=== PATIENT | female | born 1975 | race African-American/Black ===

== ENCOUNTER 2016-06-17 01:04 | Emergency (ER) | payer SELFPAY ==
[~2016-06-17] VITALS: Ht 162.6 cm; Wt 60.0 kg
[~2016-06-17 01:04] MED LIST: ADVA250A INH; AZOR5TAB2 PO; ECOT81TA2 PO; GABA300C3 PO; OXYC1SOL5 PO; PROM2SUP; ZOFR8TAB4 PO
[2016-06-17 01:08] VITALS: BP 160/107; PULSE 85; RESP 18; TEMP 97.6; O2SAT 98
[2016-06-17] MEDS ORDERED: ASPI81TA81 PO (01:47)
[2016-06-17] MEDS ORDERED: VENTAER INH (01:47)
[2016-06-17] MEDS ORDERED: ALBUAER3 INH ×2 (01:47→04:13)
[2016-06-17] MEDS ORDERED: GABA300C5 PO (01:47)
[2016-06-17] MEDS ORDERED: NORV2.5T PO (01:47)
[2016-06-17] MEDS ORDERED: ADVA250A INH (01:47)
--- NOTE | 2016-06-17 02:22 | RADRPT ---
EXAM DATE/TIME: 06/17/2016 01:46 [facility] COMPARISON: CHEST SINGLE AP, May 19, 2015, 19:58. INDICATIONS : Shortness of breath and pain when coughing MEDICAL HISTORY : Hypertension. SURGICAL HISTORY : None. ENCOUNTER: Initial ACUITY: 1 day PAIN SCORE: 8/10 LOCATION: Bilateral chest FINDINGS: A single view of the chest demonstrates the lungs to be symmetrically aerated without evidence of mas s, infiltrate or effusion. The cardiomediastinal contours are unremarkable. Osseous structures are intact. CONCLUSION: No acute disease. Georges Newell MD on June 17, 2016 at 2:20 Board Certified Radiologist. This report was verified electronically.
[2016-06-17] MEDS ORDERED: SODIUM CHLOR 0.9% 1000 ML INJ 1,000 ML IV SCH (02:41)
[2016-06-17] MEDS ORDERED: ALUMINUM/MAGNESIUM/SIMETH 30 ML CUP PO ONE (02:45)
[2016-06-17] MEDS ORDERED: methylPREDNISolone SOD SUCC 125 MG/2 ML VIAL IVP ONE (02:45)
[2016-06-17] MEDS ORDERED: PROMETHAZINE INJ 25 MG/ML VIAL IM ONE (02:45)
[2016-06-17] MEDS ORDERED: SODIUM CHLORIDE 0.9% FLUSH 5 ML FLUSH IVF PRN (02:45)
[2016-06-17] MEDS ORDERED: MORPHINE SULFATE 4 MG/ML INJ IV PUSH ONE (02:45)
[2016-06-17] MEDS ORDERED: LIDOCAINE VISCOUS 2% SOLN 15 ML UDC PO ONE (02:45)
[2016-06-17 03:04] VITALS: BP 169/120; PULSE 78; RESP 18; O2SAT 99
[2016-06-17 03:06] VITALS: O2SAT 99
[2016-06-17] MEDS: RESP: ALBUTEROL 2.5 MG/3 ML NEB (SCH) INH ×2 (03:07→03:08)
[2016-06-17 03:24] VITALS: BP 161/105; PULSE 78; RESP 18; O2SAT 100
--- NOTE | 2016-06-17 04:04 | PD ---
HPI Chief Complaint: GI Complaint Time Seen by Provider: 01:35 Travel History International Travel<30 days: No Contact w/Intl Traveler<30days: No Traveled to known affect area: No History of Present Illness HPI Patient's 41 years old. She reports vomiting and headache. She was cleaning. She bleeding. Vomiting was followed by chest pain and headaches. She used a nebulizer at home as well as a pro-air inhaler and Tylenol. These interventions were minimally helpful. She suffers migraines and asthma. Duration a few hours. PFSH Past Medical History Anemia: Yes Asthma: Yes Blood Disorders: Yes (due to endometriosis) Anxiety: Yes Heart Rhythm Problems: Yes (SVT) Cancer: No Cardiovascular Problems: Yes High Cholesterol: No Chest Pain: Yes COPD: No Diminished Hearing: No Endocrine: No Gastrointestinal Disorders: Yes (GASTROPORESIS) Genitourinary: No Headaches: Yes Herniated Disk: Yes Hypertension: Yes Immune Disorder: No Implanted Vascular Access Dvce: Yes (REMOVED 2009) Kidney Stones: Yes Musculoskeletal: No Psychiatric: No Reproductive: Yes (endometriosis, total hysterectomy) Respiratory: Yes (ASTHMA) Immunizations Current: Yes Migraines: Yes Sleep Apnea: No ?: Not : 5 Para: 5 Miscarriage: 0 Ovarian Cysts: Yes (RT. OVARIAN CYSR RESECTION) Past Surgical History Abdominal Surgery: Yes (CHOLECYSTECTOMY, APPENDECTOMY) Appendectomy: Yes Cardiac Surgery: Yes (loop recorder) Cholecystectomy: Yes Gynecologic Surgery: Yes (HYSTERECTOMY) Hysterectomy: Yes Neurologic Surgery: No Other Surgery: Yes Social History Alcohol Use: No Tobacco Use: No Substance Use: No Allergies-Medications (Allergen,Severity, Reaction): Coded Allergies: Compazine (Verified Allergy, Severe, HIVES, 06/17/16) Latex (Verified Allergy, Severe, DECREASED O2 AND SWELLING, 06/17/16) Levaquin (Verified Allergy, Severe, SWELLING, HIVES, 06/17/16) Naproxen (Verified Allergy, Severe, HIVES, 06/17/16) Reglan (Verified Allergy, Severe, HIVES, 06/17/16) Rocephin (Verified Allergy, Severe, HIVES, 06/17/16) Toradol (Verified Allergy, Severe, HIVES, 06/17/16) Ultram (Verified Allergy, Severe, HIVES, 06/17/16) Sulfa (Verified Allergy, Unknown, 06/17/16) Allan Dyson (Verified Allergy, Unknown, 06/17/16) Uncoded Allergies: TUSSIN SYRUP (Allergy, Intermediate, HIVES, 02/09/11) Reported Meds & Prescriptions Reported Meds & Active Scripts Active Reported Aspir-81 (Aspirin) 81 Mg Tabdr 81 Mg PO DAILY Advair Diskus Inh (Fluticasone-Salmeterol Inh) 250-50 Mcg/Blist Aer 1 Puff INH BID Rinse mouth after use. Ventolin Hfa 18 GM Inh (Albuterol Sulfate) 90 Mcg/Act Aer 2 Puff INH Q4-6H PRN Proair Hfa 8.5 GM Inh (Albuterol Sulfate) 90 Mcg/Act Aer 2 Puff INH Q4-6H PRN 108 mcg/actuation Gabapentin 300 Mg Cap 300 Mg PO TID Norvasc (Amlodipine Besylate) 2.5 Mg Tab 2.5 Mg PO DAILY Review of Systems Except as stated in HPI: all other systems reviewed are Neg Physical Exam Narrative GENERAL: 41-year-old female no acute distress SKIN: Warm and dry. HEAD: Atraumatic. Normocephalic. EYES: Pupils equal and round. No scleral icterus. No injection or drainage. ENT: No nasal bleeding or discharge. Mucous membranes pink and moist. NECK: Trachea midline. No JVD. CARDIOVASCULAR: Regular rate and rhythm. No murmur appreciated. RESPIRATORY: No accessory muscle use. Clear to auscultation. Breath sounds equal bilaterally. GASTROINTESTINAL: Abdomen soft, non-tender, nondistended. Hepatic and splenic margins not palpable. MUSCULOSKELETAL: No obvious deformities. No clubbing. No cyanosis. No edema. NEUROLOGICAL: Awake and alert. No obvious cranial nerve deficits. Motor grossly within normal limits. Normal speech. PSYCHIATRIC: Appropriate mood and affect; insight and judgment normal. Data Data Last Documented VS Vital Signs Date Time Temp Pulse Resp B/P Pulse Ox O2 Delivery O2 Flow Rate FiO2 06/17/16 03:24 78 18 161/105 100 06/17/16 03:06 Room Air 06/17/16 03:04 2 06/17/16 01:08 97.6 Orders Chest, Single Ap (06/17/16 01:36) Morphine Inj (Morphine Inj) (06/17/16 02:45) Sodium Chlor 0.9% 1000 Ml Inj (Ns 1000 M (06/17/16 02:41) Al-Mag Hy-Si 40-40-4 Mg/Ml Liq (Mag-Al P (06/17/16 02:45) Lidocaine 2% Viscous (Xylocaine 2% Visco (06/17/16 02:45) Promethazine Inj (Phenergan Inj) (06/17/16 02:45) Iv Access Insert/Monitor (06/17/16 02:41) Ecg Monitoring (06/17/16 02:41) Oximetry (06/17/16 02:41) Oxygen Administration (06/17/16 02:41) Sodium Chloride 0.9% Flush (Ns Flush) (06/17/16 02:45) Methylprednisolone So Succ Inj (Solumedr (06/17/16 02:45) Albuterol Neb (Albuterol Neb) (06/17/16 02:45) MDM Medical Decision Making Medical Screen Exam Complete: Yes Emergency Medical Condition: Yes Medical Record Reviewed: Yes Differential Diagnosis NSTEMI, unstable angina, coronary vasospasm, PE, PTX, aortic dissection, pericarditis, myocarditis, endocarditis, PNA, esophageal disease, aneurysm, musculoskeletal etiologies, anxiety, cocaine/sympathomimetic abuse Narrative Course Chest x-ray: No acute disease Patient reports feeling persistent chest pain for oh 8 AM. After inhaling bleach and coughing for several hours coronary disease is considered quite a bit less likely. We'll provide albuterol nebulizer solution for home and a refill for inhaler at her request. She reports good effect from guaifenesin with codeine in the past. We discussed return precautions and patient verbalized understanding. She also reports improvement after use of lidocaine and Maalox given here as well as Solu-Medrol and breathing treatments. Diagnosis Primary Impression: Cough Referrals: Primary Care Physician 1 day Additional Instructions: You have a choice when it comes to health care, and we are glad that you chose [facility]. Hopefully, we have met your expectations on today's visit. You are welcome to return to [facility] at any time, as we are committed to meeting the health care needs of our community. Med/Other Pt SpecificInfo: Prescription(s) given Scripts Guaifenesin-Codeine Liq 100-10 Mg/5 Ml Soln10 Ml PO Q6H PRN (COUGH) #1 BOTTLE Ref 0 Prov:Ryan Boothe MD 06/17/16 Prednisone 20 Mg Tab40 Mg PO DAILY 4 Days Ref 0 Take 40 mg (2 tablets) daily for 5 days Prov:Ryan Boothe MD 06/17/16 Albuterol Neb 2.5 Mg/0.5 Ml Neb2.5 Mg NEB Q6HR NEB PRN (WHEEZING) #30 BOX Note: The Albuterol Sulfate Inhalation Solution is concentrated and must be diluted. Read complete instructions carefully before using. Prov:Ryan Boothe MD 06/17/16 Albuterol 8.5 GM Inh (Proair Hfa 8.5 GM Inh)90 Mcg/Act Aer2 Puff INH Q4-6H PRN ( SHORTNESS OF BREATH) #1 INHALER Ref 0 108 mcg/actuation Prov:Ryan Boothe MD 06/17/16 Disposition: 01 DISCHARGE HOME Condition: Stable Ryan Boothe MD Jun 17, 2016 04:04
[2016-06-17] MEDS ORDERED: GUAI100S5 PO (04:13)
[2016-06-17] MEDS ORDERED: PRED20 PO (04:13)
[2016-06-17] MEDS ORDERED: ALBU.5I NEB (04:13)
== END 2016-06-17 05:24 | disposition home or self-care (01) ==
LOC: NEPC 01:04
DX: R05 Cough (principal); R07.9 Chest pain, unspecified; T59.894A Toxic effect of other specified gases, fumes and vapors, undetermined, initial encounter; W93.12XA Inhalation of liquid air, initial encounter; Y93.E9 Activity, other interior property and clothing maintenance; Y92.9 Unspecified place or not applicable; Y99.9 Unspecified external cause status
CPT/HCPCS: 71010; 94640; 94664; 96361; 96372; 96374; 96375; 99284; J2270; J2550; J2930; J7030; J7613

== ENCOUNTER 2017-01-04 09:32 | Emergency (ER) | payer OTHER ==
[~2017-01-04] VITALS: Ht 162.6 cm; Wt 60.0 kg
[~2017-01-04 09:32] MED LIST changes: +ALBU.5I NEB; +ALBUAER3 INH; +ASPI81TA81 PO; -AZOR5TAB2 PO; -ECOT81TA2 PO; -GABA300C3 PO; +GABA300C5 PO; +GUAI100S5 PO; +NORV2.5T PO; -OXYC1SOL5 PO; +PRED20 PO; -PROM2SUP; +VENTAER INH; -ZOFR8TAB4 PO
[2017-01-04 09:36] VITALS: BP 179/102; PULSE 92; RESP 22; TEMP 98.7; O2SAT 99
[2017-01-04] MEDS ORDERED: AMLO10TA2 PO (09:49)
[2017-01-04] MEDS ORDERED: ATEN50TA PO (09:49)
[2017-01-04] MEDS ORDERED: SODIUM CHLOR 0.9% 1000 ML INJ 1,000 ML IV ONE (11:30)
[2017-01-04] MEDS ORDERED: SUMAtriptan INJ 6 MG/0.5 ML VIAL SQ ONE (11:30)
[2017-01-04] MEDS ORDERED: DEXAMETHASONE SOD PHOS 4 MG/ML VIAL IV PUSH ONE (11:30)
[2017-01-04] MEDS ORDERED: diphenhydrAMINE HCL 50 MG/ML VIAL IV PUSH ONE (11:30)
--- NOTE | 2017-01-04 11:55 | PD ---
HPI Chief Complaint: Headache Time Seen by Provider: 11:10 Travel History International Travel<30 days: No Contact w/Intl Traveler<30days: No Traveled to known affect area: No History of Present Illness HPI 41 year-old female with a history of migraines presents to the emergency room for evaluation of posterior and left-sided headache for the past 5 days. Gradual onset. States it started off as a normal migraine and progressed with severe worsening of symptoms last night. Patient has had associated nausea and vomiting. She reports associated photophobia. Patient reports history of TIA in January 2016. Her primary care physician Dr. Boykin, has ordered an outpatient MRI scheduled in 3 days for possible pituitary tumor because she has associated bloody nipple discharge from the right breast. Patient had essentially normal MRI one year ago. Patient typically gets 18 migraines per month. She is not on any chronic migraine management. States she typically takes aspirin and Tylenol but that stopped working a couple days ago. Pain is worse with lifting her head. Denies any recent illness. Denies fever, chills. She denies any recent trauma or injury to her head. PFSH Past Medical History Anemia: Yes Asthma: Yes Blood Disorders: Yes (due to endometriosis) Anxiety: Yes Heart Rhythm Problems: Yes (SVT) Cancer: No Cardiovascular Problems: Yes High Cholesterol: No Chest Pain: Yes COPD: No Diminished Hearing: No Endocrine: No Gastrointestinal Disorders: Yes (GASTROPORESIS) Genitourinary: No Headaches: Yes Herniated Disk: Yes Hypertension: Yes Immune Disorder: No Implanted Vascular Access Dvce: Yes (REMOVED 2009) Insomnia: Yes Kidney Stones: Yes Musculoskeletal: No Psychiatric: No Reproductive: Yes (endometriosis, total hysterectomy) Respiratory: Yes (ASTHMA) Immunizations Current: Yes Migraines: Yes Sleep Apnea: No ?: Not : 5 Para: 5 Miscarriage: 0 Ovarian Cysts: Yes (RT. OVARIAN CYSR RESECTION) Past Surgical History Abdominal Surgery: Yes (CHOLECYSTECTOMY, APPENDECTOMY) Appendectomy: Yes Cardiac Surgery: Yes (loop recorder) Cholecystectomy: Yes Gynecologic Surgery: Yes (HYSTERECTOMY) Hysterectomy: Yes Neurologic Surgery: No Other Surgery: Yes Social History Alcohol Use: No Tobacco Use: No Substance Use: No Allergies-Medications (Allergen,Severity, Reaction): Coded Allergies: ceftriaxone (Unverified Allergy, Severe, HIVES, 01/04/17) ketorolac (Unverified Allergy, Severe, HIVES, 01/04/17) latex (Unverified Allergy, Severe, DECREASED O2 AND SWELLING, 01/04/17) levofloxacin (Unverified Allergy, Severe, SWELLING, HIVES, 01/04/17) metoclopramide (Unverified Allergy, Severe, HIVES, 01/04/17) naproxen (Unverified Allergy, Severe, HIVES, 01/04/17) prochlorperazine (Unverified Allergy, Severe, HIVES, 01/04/17) tramadol (Unverified Allergy, Severe, HIVES, 01/04/17) Sulfa (Sulfonamide Antibiotics) (Unverified Allergy, Unknown, 01/04/17) benzonatate (Unverified Allergy, Unknown, 01/04/17) Iodinated Contrast- Oral and IV Dye (Verified Adverse Reaction, Unknown, Hives, 01/04/17) IV CONTRAST ONLY Uncoded Allergies: TUSSIN SYRUP (Allergy, Intermediate, HIVES, 02/09/11) Reported Meds & Prescriptions Reported Meds & Active Scripts Active Augmentin (Amoxicillin-Clavulanate) 875-125 Mg Tab 1 Tab PO BID 10 Days Guaifenesin-Codeine Liq 100-10 Mg/5 Ml Soln 10 Ml PO Q6H PRN Albuterol Neb (Albuterol Sulfate) 2.5 Mg/0.5 Ml Neb 2.5 Mg NEB Q6HR NEB PRN Note: The Albuterol Sulfate Inhalation Solution is concentrated and must be diluted. Read complete instructions carefully before using. Proair Hfa 8.5 GM Inh (Albuterol Sulfate) 90 Mcg/Act Aer 2 Puff INH Q4-6H PRN 108 mcg/actuation Reported Atenolol 50 Mg Tab 50 Mg PO DAILY Amlodipine (Amlodipine Besylate) 10 Mg Tab 10 Mg PO BID Aspir-81 (Aspirin) 81 Mg Tabdr 81 Mg PO DAILY Gabapentin 300 Mg Cap 300 Mg PO TID Review of Systems Except as stated in HPI: all other systems reviewed are Neg Physical Exam Narrative GENERAL: Well-nourished, well-developed female in no acute distress. Afebrile. Ambulatory. Crying in pain. SKIN: Focused skin assessment warm/dry. HEAD: Normocephalic. EYES: No scleral icterus. No injection or drainage. NECK: Supple, trachea midline. No JVD or lymphadenopathy. ENT: Mucosa pink and moist. No erythema or exudates. No uvular edema. No uvular , palatal, or tonsillar deviation. Airway patent. Nasal turbinates appear normal without nasal blood, purulent drainage or septal hematoma. EARS: Bilateral pinnae and external canals appear within normal limits. Bilateral tympanic membranes without erythema, dullness or perforation. No hemotympanum. CARDIOVASCULAR: Regular rate and rhythm without murmurs, gallops, or rubs. RESPIRATORY: Breath sounds equal bilaterally. No accessory muscle use. NEUROLOGICAL: Awake and alert. Cranial nerves II through XII intact. Motor and sensory grossly within normal limits. Five out of 5 muscle strength in all muscle groups. Normal speech. No pronator drift upper or lower extremities. Data Data Last Documented VS Vital Signs Date Time Temp Pulse Resp B/P (MAP) Pulse Ox O2 Delivery O2 Flow Rate FiO2 01/04/17 09:36 98.7 92 22 179/102 (127) 99 Room Air Orders Orders Diphenhydramine Inj (Benadryl Inj) (01/04/17 11:30) Dexamethasone Inj (Decadron Inj) (01/04/17 11:30) Sodium Chlor 0.9% 1000 Ml Inj (Ns 1000 M (01/04/17 11:30) Ct Brain W/O Iv Contrast(Rout) (01/04/17 ) Sumatriptan Inj (Imitrex Inj) (01/04/17 11:30) Morphine Inj (Morphine Inj) (01/04/17 12:15) Orphenadrine Inj (Norflex Inj) (01/04/17 12:30) MDM Medical Decision Making Medical Screen Exam Complete: Yes Emergency Medical Condition: Yes Medical Record Reviewed: Yes Differential Diagnosis Migraine, subarachnoid hemorrhage, intracranial abnormality, cephalgia Narrative Course 41-year-old female with history of chronic migraines (reportedly 18 per month) presents to the emergency room for evaluation of nontraumatic, gradual onset headache worsening of the past 5 days. Denies trauma or injury. She does not follow with a neurologist and is not on any long-term migraine management medication. Pain is localized to the posterior aspect with radiation into the neck and on the left side of her head. She denies any recent illness. No history of fever. She is afebrile well-appearing in the emergency room. Vital signs stable. No focal neurological deficits. Strength 5/5 and equal in bilateral upper and lower extremities. No pronator drift in upper lower extremity. No cranial nerve deficits. Normal speech. Patient is exuberantly crying in pain which I suspect is exacerbating her headache. IV access established and 1 L saline, Benadryl, and prednisone given for pain as well as sumatriptan. Patient reports no relief from medications and was then given [address] shows mild ethmoid sinus disease but no other acute abnormality. Patient will be discharged with prescription for Augmentin and told to follow-up with a primary care physician or return for worsening symptoms. She understands and agrees to plan. Diagnosis Primary Impression: Migraine headache Qualified Codes: G43.719 - Chronic migraine without aura, intractable, without status migrainosus Referrals: Neurologist Primary Care Physician Additional Instructions: Rest and drink plenty of fluids. Augmentin as directed, until gone. Take ibuprofen with food as directed, as needed for pain. Follow-up with a neurologist for chronic management of migraines. Return to the emergency room for worsening symptoms. Med/Other Pt SpecificInfo: Prescription(s) given Scripts Amoxicillin-Clavulanate (Augmentin) 875-125 Mg Tab 1 TAB PO BID for Infection for 10 Days, #20 TAB 0 Refills Prov: David Wade MD 01/04/17 Disposition: 01 DISCHARGE HOME Condition: Stable Cassandra Szymanski Jan 04, 2017 11:55
--- NOTE | 2017-01-04 12:00 | RADRPT ---
EXAM DATE/TIME: 01/04/2017 11:45 [facility] COMPARISON: CT BRAIN W/O CONTRAST, February 08, 2016, 9:51. INDICATIONS : Headache posterior head. RADIATION DOSE: 28.77 CTDIvol (mGy) MEDICAL HISTORY : Migraines.Suspicion of pituitary tumor due to lab work. SURGICAL HISTORY : None. ENCOUNTER: Initial ACUITY: 1 week PAIN SCALE: 10/10 LOCATION: Bilateral posterior brain. TECHNIQUE: Multiple contiguous axial images were obtained of the head. Using automated exposure control and adj ustment of the mA and/or kV according to patient size, radiation dose was kept as low as reasonably a chievable to obtain optimal diagnostic quality images. DICOM format image data is available electro nically for review and comparison. FINDINGS: CEREBRUM: The ventricles are normal for age. No evidence of midline shift, mass lesion, hemorrhage or acute in farction. No extra-axial fluid collections are seen. POSTERIOR FOSSA: The cerebellum and brainstem are intact. The 4th ventricle is midline. The cerebellopontine angle i s unremarkable. EXTRACRANIAL: The visualized portion of the orbits is intact. SKULL: The calvaria is intact. No evidence of skull fracture. Minimal ethmoid sinus disease. Inadequate e valuation of the sella CONCLUSION: Minimal ethmoid sinus disease. Otherwise negative. Travis Gupta MD FACR on January 04, 2017 at 11:57 Board Certified Radiologist. This report was verified electronically.
[2017-01-04] MEDS ORDERED: MORPHINE SULFATE 4 MG/ML INJ IV PUSH ONE (12:15)
--- NOTE | 2017-01-04 12:24 | PD ---
Physical Exam Narrative Patient was seen with my orthopedic assistant. Data Data Last Documented VS Vital Signs Date Time Temp Pulse Resp B/P (MAP) Pulse Ox O2 Delivery O2 Flow Rate FiO2 01/04/17 12:52 01/04/17 09:36 98.7 92 22 99 Room Air Orders Orders Diphenhydramine Inj (Benadryl Inj) (01/04/17 11:30) Dexamethasone Inj (Decadron Inj) (01/04/17 11:30) Sodium Chlor 0.9% 1000 Ml Inj (Ns 1000 M (01/04/17 11:30) Ct Brain W/O Iv Contrast(Rout) (01/04/17 ) Sumatriptan Inj (Imitrex Inj) (01/04/17 11:30) Morphine Inj (Morphine Inj) (01/04/17 12:15) Orphenadrine Inj (Norflex Inj) (01/04/17 12:30) MDM Supervised Visit with SILVERIO: Yes Narrative Course Patient was seen with my orthopedic assistant. Scripts Amoxicillin-Clavulanate (Augmentin) 875-125 Mg Tab 1 TAB PO BID for Infection for 10 Days, #20 TAB 0 Refills Prov: David Wade MD 01/04/17 Disposition: 01 DISCHARGE HOME Condition: Stable David Wade MD Jan 04, 2017 12:24
[2017-01-04] MEDS ORDERED: AUGM875T3 PO (12:26)
[2017-01-04] MEDS ORDERED: ORPHENADRINE INJ 60 MG/2 ML AMP IM ONE (12:30)
== END 2017-01-04 12:53 | disposition home or self-care (01) ==
LOC: NEPD 09:32
DX: G43.719 Chronic migraine without aura, intractable, without status migrainosus (principal); H53.149 Visual discomfort, unspecified; R11.2 Nausea with vomiting, unspecified; J45.909 Unspecified asthma, uncomplicated; I10 Essential (primary) hypertension
CPT/HCPCS: 70450; 96361; 96372; 96374; 96375; 99285; J1100; J1200; J2270; J2360; J3030; J7030

== ENCOUNTER 2017-01-25 13:05 | Emergency (ER) | payer OTHER ==
[~2017-01-25] VITALS: Ht 162.6 cm; Wt 60.0 kg
[~2017-01-25 13:05] MED LIST changes: -ADVA250A INH; +AMLO10TA2 PO; +ATEN50TA PO; +AUGM875T3 PO; -NORV2.5T PO; -PRED20 PO; -VENTAER INH
[2017-01-25 13:10] VITALS: BP 184/114; PULSE 81; RESP 14; TEMP 98.6; O2SAT 97
--- NOTE | 2017-01-25 13:39 | PD ---
HPI Chief Complaint: Headache Time Seen by Provider: 13:38 Travel History International Travel<30 days: No Contact w/Intl Traveler<30days: No Traveled to known affect area: No History of Present Illness HPI 42 YO F with PMH of migraine headaches, distant head trauma, HTN presents to the ED for evaluation of "weeks long" headache, worsening over the last 3 days. Described as left posterior as well as behind the left eye, rated 10/10. Endorses accompanying blurred vision, dizziness, tingling in the bilateral upper extremities. The patient states that she has had similar headaches for years. She states that she receives injections in the neck from a pain support group manager. She treated today with Phenergan and Excedrin at home with no improvement. She states that she was seen in the Ed a few weeks ago with similar symptoms. Since then she saw her PCP, Neurologist and Healthcare Economics Manager with no improvement of her symptoms. She states that she had an outpatient MRI of the brain last month. She has an appointment this week to discuss the results. PFSH Past Medical History Anemia: Yes Asthma: Yes Blood Disorders: Yes (due to endometriosis) Anxiety: Yes Heart Rhythm Problems: Yes (SVT) Cancer: No Cardiovascular Problems: Yes High Cholesterol: No Chest Pain: Yes COPD: No Diminished Hearing: No Endocrine: No Gastrointestinal Disorders: Yes (GASTROPORESIS) Genitourinary: No Headaches: Yes Herniated Disk: Yes Hypertension: Yes Immune Disorder: No Implanted Vascular Access Dvce: Yes (REMOVED 2009) Insomnia: Yes Kidney Stones: Yes Musculoskeletal: No Psychiatric: No Reproductive: Yes (endometriosis, total hysterectomy) Respiratory: Yes (ASTHMA) Immunizations Current: Yes Migraines: Yes Sleep Apnea: No ?: Not LMP: FEB 2003 : 5 Para: 5 Miscarriage: 0 Ovarian Cysts: Yes (RT. OVARIAN CYSR RESECTION) Past Surgical History Abdominal Surgery: Yes (CHOLECYSTECTOMY, APPENDECTOMY) Appendectomy: Yes Cardiac Surgery: Yes (loop recorder) Cholecystectomy: Yes Gynecologic Surgery: Yes (HYSTERECTOMY) Hysterectomy: Yes Neurologic Surgery: No Other Surgery: Yes Social History Alcohol Use: No Tobacco Use: No Substance Use: No Allergies-Medications (Allergen,Severity, Reaction): Coded Allergies: ceftriaxone (Unverified Allergy, Severe, HIVES, 01/04/17) ketorolac (Unverified Allergy, Severe, HIVES, 01/04/17) latex (Unverified Allergy, Severe, DECREASED O2 AND SWELLING, 01/04/17) levofloxacin (Unverified Allergy, Severe, SWELLING, HIVES, 01/04/17) metoclopramide (Unverified Allergy, Severe, HIVES, 01/04/17) naproxen (Unverified Allergy, Severe, HIVES, 01/04/17) prochlorperazine (Unverified Allergy, Severe, HIVES, 01/04/17) tramadol (Unverified Allergy, Severe, HIVES, 01/04/17) Sulfa (Sulfonamide Antibiotics) (Unverified Allergy, Unknown, 01/04/17) benzonatate (Unverified Allergy, Unknown, 01/04/17) Iodinated Contrast- Oral and IV Dye (Verified Adverse Reaction, Unknown, Hives, 01/04/17) IV CONTRAST ONLY Uncoded Allergies: TUSSIN SYRUP (Allergy, Intermediate, HIVES, 02/09/11) Reported Meds & Prescriptions Reported Meds & Active Scripts Active Fioricet (Ezwnfdedcn-Dwrimnhxszelq-Bdjvwqoo) 50-300-40 Mg Cap 1 Cap PO Q4H PRN Augmentin (Amoxicillin-Clavulanate) 875-125 Mg Tab 1 Tab PO BID 10 Days Guaifenesin-Codeine Liq 100-10 Mg/5 Ml Soln 10 Ml PO Q6H PRN Albuterol Neb (Albuterol Sulfate) 2.5 Mg/0.5 Ml Neb 2.5 Mg NEB Q6HR NEB PRN Note: The Albuterol Sulfate Inhalation Solution is concentrated and must be diluted. Read complete instructions carefully before using. Proair Hfa 8.5 GM Inh (Albuterol Sulfate) 90 Mcg/Act Aer 2 Puff INH Q4-6H PRN 108 mcg/actuation Reported Atenolol 50 Mg Tab 50 Mg PO DAILY Amlodipine (Amlodipine Besylate) 10 Mg Tab 10 Mg PO BID Aspir-81 (Aspirin) 81 Mg Tabdr 81 Mg PO DAILY Gabapentin 300 Mg Cap 300 Mg PO TID Review of Systems Except as stated in HPI: all other systems reviewed are Neg Physical Exam Narrative GENERAL: Well-nourished, well-developed anxious black female in NAD. SKIN: Warm and dry. HEAD: Normocephalic. Atraumatic. EYES: No scleral icterus. No injection or drainage. PERRLA. EOMI. ENT: Pearly gasca tympanic membranes bilaterally. Oropharynx without erythema, edema or exudate. NECK: Supple, trachea midline. No JVD or lymphadenopathy. No midline TTP. No pain with or limitation to ROM. Negative Brudzinski and Kernig's. CARDIOVASCULAR: Regular rate and rhythm without murmurs, gallops, or rubs. 2+ DP and radial pulses bilaterally. RESPIRATORY: Breath sounds clear and equal bilaterally. No accessory muscle use. GASTROINTESTINAL: Abdomen soft, non-tender, nondistended. + Bowel sounds MUSCULOSKELETAL: No cyanosis, or edema. NEUROLOGICAL: Awake and alert. Cranial nerves II through XII intact. Motor and sensory grossly within normal limits. Five out of 5 muscle strength in all muscle groups. Normal speech. BACK: Nontender without obvious deformity. No CVA tenderness. Data Data Last Documented VS Vital Signs Date Time Temp Pulse Resp B/P (MAP) Pulse Ox O2 Delivery O2 Flow Rate FiO2 01/25/17 17:06 72 18 157/95 (115) 98 01/25/17 15:45 Room Air 01/25/17 13:10 98.6 Orders Orders Ecg Monitoring (01/25/17 14:14) Iv Access Insert/Monitor (01/25/17 14:14) Oximetry (01/25/17 14:14) Sodium Chloride 0.9% Flush (Ns Flush) (01/25/17 14:15) Diphenhydramine Inj (Benadryl Inj) (01/25/17 14:15) Sodium Chlor 0.9% 1000 Ml Inj (Ns 1000 M (01/25/17 14:14) Promethazine Inj (Phenergan Inj) (01/25/17 14:15) Morphine Inj (Morphine Inj) (01/25/17 14:15) Lorazepam (Ativan) (01/25/17 16:45) MDM Medical Decision Making Medical Screen Exam Complete: Yes Emergency Medical Condition: Yes Differential Diagnosis migraine versus cephalgia versus paraesthesias versus anxiety versus other Narrative Course 42 YO F with PMH of migraine headaches, distant head trauma, HTN presents to the ED for evaluation of "weeks long" headache, worsening over the last 3 days. Described as left posterior as well as behind the left eye, rated 10/10. Endorses accompanying blurred vision, dizziness, tingling in the bilateral upper extremities. The patient states that she has had similar headaches for years. She states that she receives injections in the neck from a pain support group manager. She's been seen in the ED, PCP, Neurologist and Healthcare Economics Manager with no improvement of her symptoms. She states that she had an outpatient MRI of the brain last month. She has an appointment this week to discuss the results. Vitals reviewed. The patient is hypertensive on presentation. Physical exam reveals no focal neuro deficit. Negative Brudzinski and Kernig's. IV was established. Patient was administered Benadryl, Phenergan, 2 mg morphine and 1 L of fluids IV. I reviewed the patient's outpatient MRI of 01/07/17. It reveals a 2 mm nonenhancing nodule in the left pituitary. The patient had a negative CT at her last visit 01/04. On recheck the patient is sleeping. She rouses easily to voice. She reports no improvement of her headache. The patient does seem anxious and was administered 0.5 mg Ativan by mouth. I believe this is likely a factor in her symptoms. She is currently undergoing workup for breast cancer and I suspect this is adding to her already existing anxiety. I discussed the need for follow-up with her neurologist and primary care for further evaluation. She was provided with a few doses of Fioricet. The patient indicated understanding of the discharge instructions. She is stable and discharged home Diagnosis Primary Impression: Cephalgia Qualified Codes: R51 - Headache Referrals: Neurologist Primary Care Physician Patient Instructions: General Instructions, Migraine Headache (ED) Additional Instructions: Rest, hydrate. Resume at home medications as previously prescribed. Follow up with your PCP and neurologist as planned. Return to the ED for any urgent or emergent medical condition. Scripts Bddrsrqnwd-Sxakirieahbus-Zkdqunbm (Fioricet) 50-300-40 Mg Cap 1 CAP PO Q4H Y for HEADACHE, #15 CAP 0 Refills Prov: Sara Rosas MD 01/25/17 Disposition: 01 DISCHARGE HOME Condition: Stable Nicolasa Kiran Jan 25, 2017 13:39
[2017-01-25] MEDS ORDERED: SODIUM CHLOR 0.9% 1000 ML INJ 1,000 ML IV ONE (14:14)
[2017-01-25] MEDS ORDERED: SODIUM CHLORIDE 0.9% FLUSH 10 ML FLUSH IVF PRN (14:15)
[2017-01-25] MEDS ORDERED: diphenhydrAMINE HCL 50 MG/ML VIAL IVP ONE (14:15)
[2017-01-25] MEDS ORDERED: PROMETHAZINE INJ 25 MG/ML VIAL IM ONE (14:15)
[2017-01-25] MEDS ORDERED: MORPHINE SULFATE 2 MG/ML INJ IV PUSH ONE (14:15)
[2017-01-25 15:44] VITALS: O2SAT 98
[2017-01-25 15:45] VITALS: BP 153/99; PULSE 58; RESP 18; O2SAT 98
[2017-01-25] MEDS ORDERED: LORazepam 0.5 MG TAB PO ONE (16:45)
[2017-01-25] MEDS ORDERED: BUTA1CAP PO (16:46)
[2017-01-25 17:06] VITALS: BP 157/95
== END 2017-01-25 17:24 | disposition home or self-care (01) ==
LOC: NEPD 13:05
DX: R51 Headache (principal); R42 Dizziness and giddiness; R20.2 Paresthesia of skin; H53.8 Other visual disturbances; I10 Essential (primary) hypertension; D64.9 Anemia, unspecified; J45.909 Unspecified asthma, uncomplicated; F41.9 Anxiety disorder, unspecified; K31.84 Gastroparesis
CPT/HCPCS: 96361; 96372; 96374; 96375; 99284; J1200; J2270; J2550; J7030

== ENCOUNTER 2017-02-02 08:28 | Emergency (ER) | payer OTHER ==
[~2017-02-02] VITALS: Ht 162.6 cm; Wt 62.0 kg
[~2017-02-02 08:28] MED LIST changes: +BUTA1CAP PO
[2017-02-02 08:38] VITALS: BP 176/110; PULSE 83; RESP 13; TEMP 98; O2SAT 97
[2017-02-02] MEDS ORDERED: ONDANSETRON HCL 4 MG/2 ML VIAL IM ONE (09:00)
[2017-02-02] MEDS ORDERED: MORPHINE SULFATE 4 MG/ML INJ IM ONE (09:00)
--- NOTE | 2017-02-02 09:08 | PD ---
HPI Chief Complaint: Headache Time Seen by Provider: 08:45 Travel History International Travel<30 days: No Contact w/Intl Traveler<30days: No Traveled to known affect area: No History of Present Illness HPI The patient was seen and examined in the presence of the nurse. This patient has chronic headache problems. She follows with neurology. She had an MRI less than a month ago. She says this current headache is better than 35 days. Location is right occipital region. No injury or head trauma. Denies fever. Symptoms severity is moderate PFSH Past Medical History Anemia: Yes Asthma: Yes Blood Disorders: Yes (due to endometriosis) Anxiety: Yes Heart Rhythm Problems: Yes (SVT) Cancer: Yes (POSSIBLE BREAST CA) Cardiovascular Problems: Yes High Cholesterol: No Chest Pain: Yes COPD: No Diminished Hearing: No Endocrine: No Gastrointestinal Disorders: Yes (GASTROPORESIS) Genitourinary: No Headaches: Yes Herniated Disk: Yes Hypertension: Yes Immune Disorder: No Implanted Vascular Access Dvce: Yes (REMOVED 2009) Insomnia: Yes Kidney Stones: Yes Musculoskeletal: No Psychiatric: No Reproductive: Yes (endometriosis, total hysterectomy) Respiratory: Yes (ASTHMA) Immunizations Current: Yes Migraines: Yes Sleep Apnea: No ?: Not : 5 Para: 5 Miscarriage: 0 Ovarian Cysts: Yes (RT. OVARIAN CYSR RESECTION) Past Surgical History Abdominal Surgery: Yes (CHOLECYSTECTOMY, APPENDECTOMY) Appendectomy: Yes Cardiac Surgery: Yes (loop recorder) Cholecystectomy: Yes Gynecologic Surgery: Yes (HYSTERECTOMY) Hysterectomy: Yes Neurologic Surgery: No Other Surgery: Yes (RIGHT BREAST BIOPSY) Social History Alcohol Use: No Tobacco Use: No Substance Use: No Allergies-Medications (Allergen,Severity, Reaction): Coded Allergies: ceftriaxone (Unverified Allergy, Severe, HIVES, 01/04/17) ketorolac (Unverified Allergy, Severe, HIVES, 01/04/17) latex (Unverified Allergy, Severe, DECREASED O2 AND SWELLING, 01/04/17) levofloxacin (Unverified Allergy, Severe, SWELLING, HIVES, 01/04/17) metoclopramide (Unverified Allergy, Severe, HIVES, 01/04/17) naproxen (Unverified Allergy, Severe, HIVES, 01/04/17) prochlorperazine (Unverified Allergy, Severe, HIVES, 01/04/17) tramadol (Unverified Allergy, Severe, HIVES, 01/04/17) Sulfa (Sulfonamide Antibiotics) (Unverified Allergy, Unknown, 01/04/17) benzonatate (Unverified Allergy, Unknown, 01/04/17) Iodinated Contrast- Oral and IV Dye (Verified Adverse Reaction, Unknown, Hives, 01/04/17) IV CONTRAST ONLY Uncoded Allergies: TUSSIN SYRUP (Allergy, Intermediate, HIVES, 02/09/11) Reported Meds & Prescriptions Reported Meds & Active Scripts Active Fioricet (Jrsfnxowjx-Kgbdwqnnybabc-Gqathynr) 50-300-40 Mg Cap 1 Cap PO Q4H PRN Augmentin (Amoxicillin-Clavulanate) 875-125 Mg Tab 1 Tab PO BID 10 Days Guaifenesin-Codeine Liq 100-10 Mg/5 Ml Soln 10 Ml PO Q6H PRN Albuterol Neb (Albuterol Sulfate) 2.5 Mg/0.5 Ml Neb 2.5 Mg NEB Q6HR NEB PRN Note: The Albuterol Sulfate Inhalation Solution is concentrated and must be diluted. Read complete instructions carefully before using. Proair Hfa 8.5 GM Inh (Albuterol Sulfate) 90 Mcg/Act Aer 2 Puff INH Q4-6H PRN 108 mcg/actuation Reported Atenolol 50 Mg Tab 50 Mg PO DAILY Amlodipine (Amlodipine Besylate) 10 Mg Tab 10 Mg PO BID Aspir-81 (Aspirin) 81 Mg Tabdr 81 Mg PO DAILY Gabapentin 300 Mg Cap 300 Mg PO TID Review of Systems HENT: Positive: Headaches Cardiovascular: No: Chest Pain or Discomfort Respiratory: No: Shortness of Breath Gastrointestinal: No: Vomiting Neurologic: Positive: Headache Physical Exam Narrative GENERAL: Well-nourished, well-developed patient complaining of headache. SKIN: Focused skin assessment reveals no rash and nodules. Skin is Warm and dry. HEAD: Atraumatic. Normocephalic. Right occipital region is tender but no scalp findings on exam EYES: Pupils equal and round. No scleral icterus. No injection or drainage. ENT: No nasal bleeding or discharge. Mucous membranes pink and moist. NECK: Trachea midline. No JVD. No meningeal signs CARDIOVASCULAR: Regular rate and rhythm. No murmur appreciated. RESPIRATORY: No accessory muscle use. Clear to auscultation. Breath sounds equal bilaterally. GASTROINTESTINAL: Abdomen soft, non-tender, nondistended. Hepatic and splenic margins not palpable. MUSCULOSKELETAL: No obvious deformities. No clubbing. No cyanosis. No edema. NEUROLOGICAL: Awake and alert. No obvious cranial nerve deficits. Motor grossly within normal limits. Normal speech. PSYCHIATRIC: Appropriate mood and affect; insight and judgment normal. Data Data Last Documented VS Vital Signs Date Time Temp Pulse Resp B/P (MAP) Pulse Ox O2 Delivery O2 Flow Rate FiO2 02/02/17 08:38 98.0 83 13 176/110 (132) 97 Orders Orders Ondansetron Inj (Zofran Inj) (02/02/17 09:00) Morphine Inj (Morphine Inj) (02/02/17 09:00) MDM Medical Decision Making Medical Screen Exam Complete: Yes Emergency Medical Condition: Yes Medical Record Reviewed: Yes Differential Diagnosis Differential diagnosis includes migraine, tension headache, cluster headache, meningitis. Narrative Course I have reviewed the patient's electronic medical record. She is a frequent visitor for headache problems. She was seen here 8 days ago for the same Patient is neurologically intact. No indication for repeat brain imaging. She had both brain CT and MRI last month. I gave her an intramuscular injection of morphine and Zofran Stable for outpatient follow-up with her neurologist. Diagnosis Primary Impression: Recurrent occipital headache Additional Instructions: Follow-up with your neurologist Med/Other Pt SpecificInfo: Other Disposition: 01 DISCHARGE HOME Condition: Stable Pernell Patel MD Feb 02, 2017 09:08
[2017-02-02 10:30] VITALS: BP 178/112; PULSE 98; RESP 20; O2SAT 99
[2017-02-02 11:44] VITALS: BP 172/109; PULSE 100; RESP 20; O2SAT 99
[2017-02-02] MEDS ORDERED: CLIN1CAP6 PO (12:30)
[2017-02-02] MEDS ORDERED: SODIUM CHLORIDE 0.9% FLUSH 10 ML FLUSH IVF PRN (12:45)
[2017-02-02] MEDS ORDERED: ACETAMINOPHEN 500 MG CPLT PO ONE (12:45)
--- NOTE | 2017-02-02 13:21 | RADRPT ---
EXAM DATE/TIME: 02/02/2017 12:57 [facility] COMPARISON: CHEST SINGLE AP, June 17, 2016, 1:46. INDICATIONS : Chest pain for one week. MEDICAL HISTORY : Hypertension. Gastroparesis SURGICAL HISTORY : Hysterectomy. Cholecystectomy. Appendectomy, Loop recorder, Rt breast biopsy. ENCOUNTER: Initial ACUITY: 1 week PAIN SCORE: 6/10 LOCATION: Right chest FINDINGS: A single view of the chest demonstrates the lungs to be symmetrically aerated without evidence of mas s, infiltrate or effusion. The cardiomediastinal contours are unremarkable. Osseous structures are intact. The aortic knob is prominent with tortuosity of the descending thoracic aorta. CONCLUSION: 1. No acute cardiopulmonary disease. Juno Weir MD on February 02, 2017 at 13:20 Board Certified Radiologist. This report was verified electronically.
[2017-02-02 13:31] LABS: AUTOMATED NEUTROPHIL # 10.4 TH/MM3 (1.8-7.7); BASOPHIL % 0.3 % (0.0-2.0); EOSINOPHIL % 0.1 % (0.0-4.0); HEMATOCRIT 45.9 % (35.0-46.0); HEMO FLAGS DIFF FINAL; LYMPH % 21.5 % (9.0-44.0); LYMPHOCYTE # 3.1 TH/MM3 (1.0-4.8); MEAN CORPUSCULAR HEMOGLOBIN 27.2 PG (27.0-34.0); MEAN CORPUSCULAR HGB CONC 32.8 % (32.0-36.0); MONO % 6.9 % (0.0-8.0); NEUT % 71.2 % (16.0-70.0); PLATELET COUNT 315 TH/MM3 (150-450); RED BLOOD COUNT 5.52 MIL/MM3 (4.00-5.30); RED CELL DISTRIBUTION WIDTH 14.5 % (11.6-17.2); WHITE BLOOD COUNT 14.6 TH/MM3 (4.0-11.0)
[2017-02-02 13:41] LABS: APTT (PATIENT) 24.2 SEC (24.3-30.1); INTERNATIONAL NORMALIZED RATIO 0.9 RATIO
[2017-02-02 13:48] VITALS: O2SAT 99
[2017-02-02 13:58] VITALS: BP 172/101; PULSE 90; RESP 20; O2SAT 99
[2017-02-02 14:03] LABS: ANION GAP 9 MEQ/L (5-15); BICARBONATE 28.2 MEQ/L (21.0-32.0); BLOOD UREA NITROGEN 15 MG/DL (7-18); CHLORIDE 102 MEQ/L (98-107); CREATINE KINASE 122 U/L (26-192); GLOMERULAR FILTRATION RATE 95 ML/MIN (>89); POTASSIUM 3.2 MEQ/L (3.5-5.1); SODIUM (NA) 139 MEQ/L (136-145)
[2017-02-02 14:15] LABS: CKMB 0.6 NG/ML (0.5-3.6)
[2017-02-02] MEDS ORDERED: diphenhydrAMINE HCL 25 MG CAP PO ONE (14:30)
--- NOTE | 2017-02-02 16:20 | EKG ---
Date Performed: 02/02/2017 Time Performed: 13:40:42 PTAGE: 42 years EKG: Sinus rhythm MINIMAL VOLTAGE CRITERIA FOR LVH, CONSIDER NORMAL VARIANT BORDERLINE ECG No significant change from prior electrocardiogram. PREVIOUS TRACING : 02/12/2016 05.42 DOCTOR: Byron Lafleur Interpretating Date/Time 02/02/2017 16:19:23
== END 2017-02-02 14:53 | disposition home or self-care (01) ==
LOC: NEPE 08:28
DX: R51 Headache (principal); D64.9 Anemia, unspecified; F41.9 Anxiety disorder, unspecified; I10 Essential (primary) hypertension; J45.909 Unspecified asthma, uncomplicated; R07.89 Other chest pain
CPT/HCPCS: 71010; 80048; 82550; 82552; 84484; 85025; 85610; 85730; 93005; 96372; 99285; J2270; J2405

== ENCOUNTER → 2017-03-20 | Day surgery (SDC) | payer OTHER, MEDICAID ==
--- NOTE | 2017-03-12 13:40 | TH ---
cc: SIOMARA SIMPSON DATE: 03/20/2017 [facility] [id number] ATTENDING PHYSICIAN Siomara Simpson HISTORY OF PRESENT ILLNESS The patient is a 42-year-old -[place] female with a longstanding history of bilateral nipple discharge which has been bloody on the right side and associated with right nipple inversion and breast pain. Her work-up has included a bilateral diagnostic mammogram on December 05, 2016 and a right breast ultrasound. This demonstrated moderate breast density but no subareolar masses. Breast MRI on January 15, 2017 demonstrated abnormal subareolar right breast enhancement and MR-guided biopsy was performed on January 22, 2017 which demonstrated acute and chronic mastitis. The patient comes in to see me for a second opinion. She stated that her nipple discharge has been present for approximately 10 years and is associated with intermittent right nipple inversion and pain. The discharge has been purulent and bloody in the past and is spontaneous and intermittent. Although the discharge involves both sides, she is only symptomatic on the right side. She also stated that the discharge sometimes comes from the areola rather than the nipple itself. She is a nonsmoker. PAST MEDICAL HISTORY 1. Hypertension. 2. Questionable pituitary adenoma. 3. Seasonal reactive airway disease. 4. Gastroesophageal reflux. PAST SURGICAL HISTORY 1. Appendectomy. 2. Cholecystectomy. 3. Total abdominal hysterectomy. 4. Bilateral oophorectomy. REPRODUCTIVE HISTORY G5, P5. Menarche age 10. First child age 16. Surgical menopause age 30. Her ovaries were removed at the age of 35 and she does not take hormone replacement therapy. ALLERGIES She has multiple drug allergies includin. LATEX. 2. COMPAZINE. 3. LEVAQUIN. 4. NAPROSYN. 5. REGLAN. 6. ROCEPHIN. 7. TORADOL. 8. ULTRAM. 9. TESSALON PERLES. MEDICATIONS Current medications include: 1. Advair, one puff every 12 hours. 2. Amlodipine 10 mg b.i.d. 3. Aspirin 81 mg daily. 4. Calcium and vitamin-D three times daily. 5. Excedrin for migraines, two tablets b.i.d. p.r.n. 6. Gabapentin 300 mg tablets, two q.a.m. and q.p.m., and one tablet at noon. 7. Hydrocodone/acetaminophen 5/325, 1-2 tablets q.4-6h. P.r.n. 8. Zofran 8 mg q.6h. P.r.n. 9. Prednisone 5 mg Dosepak. 10.Ranitidine 150 mg b.i.d. 11.Valsartan 80/12.5 mg, one daily. REVIEW OF SYSTEMS A 12-point review of systems was otherwise noncontributory. PHYSICAL EXAMINATION VITAL SIGNS: She is 5 feet 4 and weighs a 137 pounds with a BMI of 23.5. Blood pressure is 154/104, temperature 97, heart rate 99, respirations 16. HEENT: Unremarkable. NECK: Supple with no adenopathy or thyromegaly. CHEST: Clear throughout. CARDIAC: Normal S1 and S2, with no murmurs, rubs or gallops. BREASTS: Fibrocystic changes, and there was tenderness but no discrete mass in the right breast. ABDOMEN: Significant for a Pfannenstiel scar and port scars, but no masses or tenderness. The remainder of her exam was unremarkable. 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 I have recommended excision of the symptomatic nipple ducts and she has agreed to proceed. MD HEMANTH Quiñones/TORRES /1:17 PM /1:28 PM
[~2017-03-20] MED LIST changes: +BUPIVACAINE HCL PF 0.5% 30 ML VIAL ONE; +CLIN300C5 PO; +MEPERIDINE HCL 25 MG/ML VIAL ONE; +MIDAZOLAM HCL 2 MG/2 ML VIAL ONE; +ONDANSETRON HCL 4 MG/2 ML VIAL IV PUSH ONE; +PROPOFOL 200 MG/20 ML AMP IV ONE; +diphenhydrAMINE HCL 50 MG/ML VIAL ONE
--- NOTE | 2017-03-20 12:40 | TN ---
cc: SIOMARA SIMPSON M.D. DATE OF SURGERY 03/20/2017 PREOPERATIVE DIAGNOSIS Granulomatous mastitis of the right breast. POSTOPERATIVE DIAGNOSIS Granulomatous mastitis of the right breast. PROCEDURE PERFORMED Excision of subareolar right nipple ducts. SURGEON Siomara Simpson MD ANESTHESIA General via LMA device. INDICATION The patient is a 42-year-old -[place] female with granulomatous mastitis and nipple discharge, as well as discharge in the areola. She has failed multiple courses of antibiotics and is a nonsmoker. She now presents for excision of the involved subareolar blocked ducts. FINDINGS AT THE TIME OF SURGERY Moderate induration in the upper inner nipple was identified extending into the subareolar tissue. PROCEDURE PERFORMED After informed consent was obtained and site verification was performed, the periareolar upper inner skin was anesthetized with 0.5% Marcaine plain. Sharp dissection was then performed circumferentially around the subareolar tissue at 1 o'clock 1 cm from the nipple extending up to the nipple skin. The specimen was oriented with two sutures anteriorly, one short suture superiorly, and one long suture laterally and it was then sent for permanent pathologic evaluation. Hemostasis was easily obtained with direct pressure and the wound was closed using interrupted 3-0 Vicryl subcutaneous sutures and a 4-0 Monocryl subcuticular suture. Steri-Strips and sterile dressing were applied. The patient tolerated the procedure well and was brought to recovery room following extubation in good condition. MD HEMANTH Quiñones/RADHA /12:20 PM /12:33 PM
== END | disposition home or self-care (01) ==
LOC: ESDC 09:39
PROVIDERS: ATTEND Surgery
DX: N64.52 Nipple discharge (principal); N61.0 Mastitis without abscess
CPT/HCPCS: 00400; 19110; 88305; J1200; J2175; J2250; J2405; J3010

== ENCOUNTER 2017-08-19 18:57 | Emergency (ER) | payer MEDICAID, OTHER ==
[~2017-08-19] VITALS: Ht 162.6 cm; Wt 64.1 kg
[~2017-08-19 18:57] MED LIST changes: -BUPIVACAINE HCL PF 0.5% 30 ML VIAL ONE; -MEPERIDINE HCL 25 MG/ML VIAL ONE; -MIDAZOLAM HCL 2 MG/2 ML VIAL ONE; -ONDANSETRON HCL 4 MG/2 ML VIAL IV PUSH ONE; -PROPOFOL 200 MG/20 ML AMP IV ONE; -diphenhydrAMINE HCL 50 MG/ML VIAL ONE
[2017-08-19 19:02] VITALS: BP 136/65; PULSE 86; RESP 18; TEMP 98; O2SAT 98
[2017-08-19] MEDS ORDERED: diphenhydrAMINE HCL 50 MG/ML VIAL IV PUSH ONE (19:45)
[2017-08-19] MEDS ORDERED: SODIUM CHLOR 0.9% 1000 ML INJ 1,000 ML IV ONE (19:45)
[2017-08-19] MEDS ORDERED: ONDANSETRON HCL 4 MG/2 ML VIAL IV PUSH ONE (19:45)
--- NOTE | 2017-08-19 19:48 | PD ---
HPI Chief Complaint: GI Complaint Time Seen by Provider: 19:37 Travel History International Travel<30 days: No Contact w/Intl Traveler<30days: No Traveled to known affect area: No History of Present Illness HPI 42-year-old black female with a history of hypertension, gastroparesis, chronic pruritus, chronic neck pain and back pain, and migraines complains of nausea, vomiting and diarrhea for the past 3 days. She also has had diffuse abdominal cramping. More in the lower abdomen. She denies any fevers but states that she feels chilled. She does have a decrease in appetite. She denies any dysuria or frequency. No melena or hematochezia. 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 She denies any bad food. No recent contacts. No traveling or Camping. PFSH Past Medical History Anemia: Yes Asthma: Yes Blood Disorders: Yes (due to endometriosis) Anxiety: Yes Heart Rhythm Problems: Yes (SVT) Cancer: Yes (POSSIBLE BREAST CA) Cardiovascular Problems: Yes High Cholesterol: No Chest Pain: Yes COPD: No Diminished Hearing: No Endocrine: No Gastrointestinal Disorders: Yes (GASTROPORESIS) Genitourinary: No Headaches: Yes Herniated Disk: Yes Hypertension: Yes Immune Disorder: No Implanted Vascular Access Dvce: Yes (REMOVED 2009) Insomnia: Yes Kidney Stones: Yes Musculoskeletal: No Psychiatric: No Reproductive: Yes (endometriosis, total hysterectomy) Respiratory: Yes (ASTHMA) Immunizations Current: Yes Migraines: Yes Sleep Apnea: No ?: Not : 5 Para: 5 Miscarriage: 0 Ovarian Cysts: Yes (RT. OVARIAN CYSR RESECTION) Past Surgical History Abdominal Surgery: Yes (CHOLECYSTECTOMY, APPENDECTOMY) Appendectomy: Yes Cardiac Surgery: Yes (loop recorder) Cholecystectomy: Yes Gynecologic Surgery: Yes (HYSTERECTOMY) Hysterectomy: Yes Neurologic Surgery: No Other Surgery: Yes (RIGHT BREAST BIOPSY) Social History Alcohol Use: No Tobacco Use: No Substance Use: No Allergies-Medications (Allergen,Severity, Reaction): Coded Allergies: ceftriaxone (Verified Allergy, Severe, HIVES, 08/19/17) ketorolac (Verified Allergy, Severe, HIVES, 08/19/17) latex (Verified Allergy, Severe, DECREASED O2 AND SWELLING, 08/19/17) levofloxacin (Verified Allergy, Severe, SWELLING, HIVES, 08/19/17) metoclopramide (Verified Allergy, Severe, HIVES, 08/19/17) naproxen (Verified Allergy, Severe, HIVES, 08/19/17) prochlorperazine (Verified Allergy, Severe, HIVES, 08/19/17) tramadol (Verified Allergy, Severe, HIVES, 08/19/17) Sulfa (Sulfonamide Antibiotics) (Verified Allergy, Unknown, 08/19/17) benzonatate (Verified Allergy, Unknown, 08/19/17) Iodinated Contrast- Oral and IV Dye (Verified Adverse Reaction, Unknown, Hives, 08/19/17) IV CONTRAST ONLY Uncoded Allergies: TUSSIN SYRUP (Allergy, Intermediate, HIVES, 02/09/11) Reported Meds & Prescriptions Reported Meds & Active Scripts Active Phenergan (Promethazine HCl) 25 Mg Tablet 25 Mg PO Q6H PRN Fioricet (Gkgualwcom-Lxjthwaalcclp-Lqbwicgm) 50-300-40 Mg Cap 1 Cap PO Q4H PRN Augmentin (Amoxicillin-Clavulanate) 875-125 Mg Tab 1 Tab PO BID 10 Days Guaifenesin-Codeine Liq 100-10 Mg/5 Ml Soln 10 Ml PO Q6H PRN Albuterol Neb (Albuterol Sulfate) 2.5 Mg/0.5 Ml Neb 2.5 Mg NEB Q6HR NEB PRN Note: The Albuterol Sulfate Inhalation Solution is concentrated and must be diluted. Read complete instructions carefully before using. Proair Hfa 8.5 GM Inh (Albuterol Sulfate) 90 Mcg/Act Aer 2 Puff INH Q4-6H PRN 108 mcg/actuation Reported Clindamycin (Clindamycin HCl) 300 Mg Cap 300 Mg PO Q6H Atenolol 50 Mg Tab 50 Mg PO DAILY Amlodipine (Amlodipine Besylate) 10 Mg Tab 10 Mg PO BID Aspir-81 (Aspirin) 81 Mg Tabdr 81 Mg PO DAILY Gabapentin 300 Mg Cap 300 Mg PO TID Review of Systems General / Constitutional: Positive: Chills, No: Fever Eyes: No: Visual changes HENT: No: Headaches Cardiovascular: No: Chest Pain or Discomfort Respiratory: No: Shortness of Breath Gastrointestinal: Positive: Nausea, Vomiting, Diarrhea, Abdominal Pain Genitourinary: No: Frequency, Dysuria Musculoskeletal: Positive: Pain (Chronic neck and back pain), No: Limited ROM Skin: Positive Rash, Positive Itching Neurologic: No: Weakness Psychiatric: No: Depression Endocrine: No: Polydipsia Hematologic/Lymphatic: No: Easy Bruising Physical Exam Narrative GENERAL: Well-developed, well-nourished in no apparent distress. Nontoxic appearing. HEAD: Normocephalic, atraumatic. EYES: Pupils equal round and reactive. Extraocular motions intact. No scleral icterus. No injection or drainage. ENT: Nose clear. Throat without erythema, tonsillar hypertrophy or exudate. Uvula midline. Airway patent. NECK: Trachea midline. Supple, nontender, moves head freely. No central bony tenderness or spasm. CARDIOVASCULAR: Regular rate and rhythm without murmurs, gallops, or rubs. RESPIRATORY: Clear to auscultation. Breath sounds equal bilaterally. No wheezes , rales, or rhonchi. GASTROINTESTINAL: Abdomen soft, mild diffuse tenderness, nondistended. No hepato -splenomegaly, or palpable masses. No guarding. EXTREMITIES: No clubbing, cyanosis, or edema. No joint tenderness. BACK: Nontender without deformity. No flank tenderness. NEUROLOGICAL: Awake, alert and oriented x 3 .Cranial nerves grossly intact. Motor and sensory grossly within normal limits. Normal speech. Skin: Patient has few excoriated papular lesions on her upper extremities. No pustules or vesicles. Data Data Last Documented VS Vital Signs Date Time Temp Pulse Resp B/P (MAP) Pulse Ox O2 Delivery O2 Flow Rate FiO2 08/19/17 19:02 98.0 86 18 136/65 (88) 98 Orders Orders Complete Blood Count With Diff (08/19/17 19:04) Comprehensive Metabolic Panel (08/19/17 19:04) Lipase (08/19/17 19:04) Urinalysis - C+S If Indicated (08/19/17 19:04) Iv Access Insert/Monitor (08/19/17 19:42) Diphenhydramine Inj (Benadryl Inj) (08/19/17 19:45) Ondansetron Inj (Zofran Inj) (08/19/17 19:45) Sodium Chlor 0.9% 1000 Ml Inj (Ns 1000 M (08/19/17 19:45) Promethazine Inj (Phenergan Inj) (08/19/17 22:00) Labs Laboratory Tests Test 08/19/17 20:17 08/19/17 20:32 White Blood Count 5.5 TH/MM3 Red Blood Count 4.37 MIL/MM3 Hemoglobin 12.0 GM/DL Hematocrit 36.0 % Mean Corpuscular Volume 82.2 FL Mean Corpuscular Hemoglobin 27.5 PG Mean Corpuscular Hemoglobin Concent 33.4 % Red Cell Distribution Width 13.6 % Platelet Count 240 TH/MM3 Mean Platelet Volume 8.1 FL Neutrophils (%) (Auto) 53.1 % Lymphocytes (%) (Auto) 37.9 % Monocytes (%) (Auto) 6.6 % Eosinophils (%) (Auto) 1.6 % Basophils (%) (Auto) 0.8 % Neutrophils # (Auto) 2.9 TH/MM3 Lymphocytes # (Auto) 2.1 TH/MM3 Monocytes # (Auto) 0.4 TH/MM3 Eosinophils # (Auto) 0.1 TH/MM3 Basophils # (Auto) 0.0 TH/MM3 CBC Comment DIFF FINAL Differential Comment Blood Urea Nitrogen 13 MG/DL Creatinine 0.91 MG/DL Random Glucose 105 MG/DL Total Protein 7.4 GM/DL Albumin 3.5 GM/DL Calcium Level 8.7 MG/DL Alkaline Phosphatase 67 U/L Aspartate Amino Transf (AST/SGOT) 42 U/L Alanine Aminotransferase (ALT/SGPT) 17 U/L Total Bilirubin 0.3 MG/DL Sodium Level 141 MEQ/L Potassium Level 4.7 MEQ/L Chloride Level 109 MEQ/L Carbon Dioxide Level 25.6 MEQ/L Anion Gap 6 MEQ/L Estimat Glomerular Filtration Rate 82 ML/MIN Lipase 148 U/L Urine Color YELLOW Urine Turbidity CLEAR Urine pH 6.0 Urine Specific [place] 1.021 Urine Protein NEG mg/dL Urine Glucose (UA) NEG mg/dL Urine Ketones NEG mg/dL Urine Occult Blood NEG Urine Nitrite NEG Urine Bilirubin NEG Urine Urobilinogen LESS THAN 2.0 MG/DL Urine Leukocyte Esterase NEG Urine RBC 1 /hpf Urine WBC 1 /hpf Urine Squamous Epithelial Cells 10 /hpf Urine Bacteria FEW /hpf Urine Mucus FEW /lpf Microscopic Urinalysis Comment CULT NOT INDICATED MDM Medical Decision Making Medical Screen Exam Complete: Yes Emergency Medical Condition: Yes Medical Record Reviewed: Yes Interpretation(s) Laboratory Tests Test 08/19/17 20:17 08/19/17 20:32 White Blood Count 5.5 TH/MM3 Red Blood Count 4.37 MIL/MM3 Hemoglobin 12.0 GM/DL Hematocrit 36.0 % Mean Corpuscular Volume 82.2 FL Mean Corpuscular Hemoglobin 27.5 PG Mean Corpuscular Hemoglobin Concent 33.4 % Red Cell Distribution Width 13.6 % Platelet Count 240 TH/MM3 Mean Platelet Volume 8.1 FL Neutrophils (%) (Auto) 53.1 % Lymphocytes (%) (Auto) 37.9 % Monocytes (%) (Auto) 6.6 % Eosinophils (%) (Auto) 1.6 % Basophils (%) (Auto) 0.8 % Neutrophils # (Auto) 2.9 TH/MM3 Lymphocytes # (Auto) 2.1 TH/MM3 Monocytes # (Auto) 0.4 TH/MM3 Eosinophils # (Auto) 0.1 TH/MM3 Basophils # (Auto) 0.0 TH/MM3 CBC Comment DIFF FINAL Differential Comment Blood Urea Nitrogen 13 MG/DL Creatinine 0.91 MG/DL Random Glucose 105 MG/DL Total Protein 7.4 GM/DL Albumin 3.5 GM/DL Calcium Level 8.7 MG/DL Alkaline Phosphatase 67 U/L Aspartate Amino Transf (AST/SGOT) 42 U/L Alanine Aminotransferase (ALT/SGPT) 17 U/L Total Bilirubin 0.3 MG/DL Sodium Level 141 MEQ/L Potassium Level 4.7 MEQ/L Chloride Level 109 MEQ/L Carbon Dioxide Level 25.6 MEQ/L Anion Gap 6 MEQ/L Estimat Glomerular Filtration Rate 82 ML/MIN Lipase 148 U/L Urine Color YELLOW Urine Turbidity CLEAR Urine pH 6.0 Urine Specific [place] 1.021 Urine Protein NEG mg/dL Urine Glucose (UA) NEG mg/dL Urine Ketones NEG mg/dL Urine Occult Blood NEG Urine Nitrite NEG Urine Bilirubin NEG Urine Urobilinogen LESS THAN 2.0 MG/DL Urine Leukocyte Esterase NEG Urine RBC 1 /hpf Urine WBC 1 /hpf Urine Squamous Epithelial Cells 10 /hpf Urine Bacteria FEW /hpf Urine Mucus FEW /lpf Microscopic Urinalysis Comment CULT NOT INDICATED Differential Diagnosis MDM: High Differential diagnoses: Acute appendicitis, acute pancreatitis, diverticulitis, hepatitis, colitis, ischemic bowel, bowel instruction, nonspecific abdominal pain, gastroparesis, electrolyte abnormality, dehydration, drug-seeking, malingering Narrative Course IV access is obtained. Patient given a liter bolus normal saline, Benadryl 50 mg IV, and Zofran 4 mg IV. The patient states that her itching and nausea has improved but not completely resolved. She states that she can take Phenergan and would like some for her nausea. Patient will be given Phenergan 25 mg IM. I reviewed the patient's laboratory testing. Her blood work is unremarkable. The patient's exam is unremarkable. The patient has tolerated p.o. challenge. The patient will be discharged home with a prescription for Phenergan. She is advised to follow-up with her doctor in the next 24-48 hours. This is vomiting, diarrhea Diagnosis Primary Impression: Vomiting Additional Impression: Diarrhea Patient Instructions: General Instructions Departure Forms: Tests/Procedures, Work Release Special Instructions: No work 2 days. Additional Instructions: Rest. Increase fluids. Phenergan for nausea. Imodium A-D [id number] for diarrhea. Follow-up with a medical doctor in the next 1-2 days for recheck. Return to the ER for emergencies. Med/Other Pt SpecificInfo: Prescription(s) given Scripts Promethazine (Phenergan) 25 Mg Tablet 25 MG PO Q6H Y for NAUSEA OR VOMITING, #6 TAB 0 Refills Prov: Valeriy Limon MD 08/19/17 Disposition: 01 DISCHARGE HOME Condition: Stable Armando Ruano Aug 19, 2017 19:48
[2017-08-19 20:30] LABS: AUTOMATED NEUTROPHIL # 2.9 TH/MM3 (1.8-7.7); BASOPHIL % 0.8 % (0.0-2.0); EOSINOPHIL # 0.1 TH/MM3 (0-0.4); EOSINOPHIL % 1.6 % (0.0-4.0); LYMPH % 37.9 % (9.0-44.0); LYMPHOCYTE # 2.1 TH/MM3 (1.0-4.8); MEAN CELL VOLUME 82.2 FL (80.0-100.0); MEAN CORPUSCULAR HEMOGLOBIN 27.5 PG (27.0-34.0); MEAN CORPUSCULAR HGB CONC 33.4 % (32.0-36.0); MEAN PLATELET VOLUME 8.1 FL (7.0-11.0); MONO % 6.6 % (0.0-8.0); MONOCYTE # 0.4 TH/MM3 (0-0.9); NEUT % 53.1 % (16.0-70.0); PLATELET COUNT 240 TH/MM3 (150-450); RED BLOOD COUNT 4.37 MIL/MM3 (4.00-5.30); RED CELL DISTRIBUTION WIDTH 13.6 % (11.6-17.2); WHITE BLOOD COUNT 5.5 TH/MM3 (4.0-11.0)
[2017-08-19 20:51] LABS: ALT (GPT) 17 U/L (10-53)
[2017-08-19 20:52] LABS: ALBUMIN 3.5 GM/DL (3.4-5.0); AST (GOT) 42 U/L (15-37); BICARBONATE 25.6 MEQ/L (21.0-32.0); BLOOD UREA NITROGEN 13 MG/DL (7-18); CALCIUM 8.7 MG/DL (8.5-10.1); CHLORIDE 109 MEQ/L (98-107); CREATININE 0.91 MG/DL (0.50-1.00); GLOMERULAR FILTRATION RATE 82 ML/MIN (>89); GLUCOSE,RANDOM 105 MG/DL (74-106); SODIUM (NA) 141 MEQ/L (136-145)
[2017-08-19 20:53] LABS: ALKALINE PHOSPHATASE 67 U/L (45-117); TOTAL BILIRUBIN ADULT 0.3 MG/DL (0.2-1.0); TOTAL PROTEIN 7.4 GM/DL (6.4-8.2)
[2017-08-19 20:59] LABS: BACTERIA, URINE FEW /hpf; BILIRUBIN, URINE NEG (NEG); BLOOD, URINE NEG (NEG); GLUCOSE,URINE NEG (NEG); KETONE, URINE NEG (NEG); MUCUS URINE FEW /lpf (OCC); NITRITE,URINE NEG (NEG); SQUAMOUS EPITHELIAL CELL URINE 10 /hpf (0-5); URINE COLOR YELLOW (YELLW/STRAW); URINE LEUKOCYTE ESTERASE NEG (NEG)
[2017-08-19] MEDS ORDERED: PROM25TA10 PO (21:48)
[2017-08-19] MEDS ORDERED: PROMETHAZINE INJ 25 MG/ML VIAL IM ONE (22:00)
[2017-08-19 22:45] VITALS: BP 127/82
== END 2017-08-19 22:49 | disposition home or self-care (01) ==
LOC: NEPD 18:57
DX: R11.2 Nausea with vomiting, unspecified (principal); R19.7 Diarrhea, unspecified; I10 Essential (primary) hypertension; J45.909 Unspecified asthma, uncomplicated
CPT/HCPCS: 80053; 81001; 83690; 85025; 96361; 96372; 96374; 96375; 99284; J1200; J2405; J2550; J7030